=== PATIENT | female | born 1930 | race Caucasian/White ===

== ENCOUNTER 2016-11-28 09:50 | Outpatient (CLI) | payer MEDICARE, OTHER ==
[2016-11-28 19:22] LABS: BASOPHILS % (AUTO) 0.6 %; EOSINOPHILS # (AUTO) 0.1 10^3/uL (0.0-0.7); EOSINOPHILS % (AUTO) 1.2 %; HCT - HEMATOCRIT 39.5 % (37.0-47.0); HGB - HEMOGLOBIN 13.1 g/dL (12.0-16.0); LYMPHOCYTES # (AUTO) 0.9 10^3/uL (1.5-3.5); LYMPHOCYTES % (AUTO) 17.5 %; MEAN CORPUSCULAR HEMOGLOBIN 31.1 pg (27.0-31.0); MEAN CORPUSCULAR HGB CONC 33.2 g/dL (32.0-36.0); MEAN CORPUSCULAR VOLUME 93.8 fL (81.0-99.0); MONOCYTES # (AUTO) 0.4 10^3/uL (0.0-1.0); MONOCYTES % (AUTO) 6.8 %; NEUTROPHILS # (AUTO) 3.9 10^3/uL (1.5-6.6); NEUTROPHILS % (AUTO) 73.9 %; RED BLOOD COUNT 4.22 10^6/uL (4.20-5.40); RED CELL DISTRIBUTION WIDTH 13.2 % (12.0-15.0); UNCORRECTED WHITE BLOOD COUNT 5.3 x10^3/uL; WHITE BLOOD COUNT 5.3 x10^3/uL (4.8-10.8)
[2016-11-28 19:38] LABS: BILIRUBIN,TOTAL 0.6 mg/dL (0.2-1.0); CALCIUM 9.2 mg/dL (8.5-10.3); CREATININE 0.8 mg/dL (0.4-1.0); POTASSIUM 4.2 mmol/L (3.5-5.0); TOTAL PROTEIN 6.5 g/dL (6.7-8.2)
[2016-11-28 19:51] LABS: PLATELET ESTIMATE, MANUAL NORMAL (130-450,000) (NORMAL); PLATELET MORPHOLOGY NORMAL APPEARANCE (NORMAL)
== END 2016-11-28 09:51 | disposition home or self-care (01) ==
LOC: LAB.WCP 09:50
PROVIDERS: ATTEND Physician Assistant Medical
DX: F03.90 Unspecified dementia, unspecified severity, without behavioral disturbance, psychotic disturbance, mood disturbance, and anxiety (principal); Z79.899 Other long term (current) drug therapy
CPT/HCPCS: 36415; 80053; 84443; 85025

== ENCOUNTER 2018-03-23 14:00 | Outpatient (CLI) | payer MEDICARE, OTHER ==
--- NOTE | 2018-03-23 18:44 | CONSULTATION NOTE ---
Palliative Care Consultation - Referral Referring Provider: Dr. Yvonne Madrid Time of Visit: 8322-3600 Referral setting: Assisted living (It is a taxing considerable effort for the patient to leave the assisted living facility secondary to pain and dementia) Referral Reason: Dementia without behavioral disturbances/ OA - Information Sources Records reviewed: Previous records reviewed History/Review of Systems obtained from: Family (Sister "Roxana WELLS and her Kevin) Exam limitations: Clinical condition (patient with advanced dementia) - History of Present Illness Brief History of Present Illness: This is a very pleasant 88-year-old woman with advanced dementia, without neuropsychiatric behaviors. She is quite cooperative with staff, and has settled into [facility] dementia unit. Her dementia had progressed until she is unable to live independent up in [place], and moved in with her sister in September 2016. She continued decline, did have some wandering behaviors and with increased incontinence and care needs was placed at [facility] about 6 months ago. Patient has known underlying osteoarthritis, in the past is managed on APAP 1000 mg 3 times daily for pain control, has had several joint replacements. She has had progressive pain over the last several weeks, escalating to the point she was having difficulty eating, walking, and was crying out intermittently. She was trialed on intermittent Tylenol without effect, then tramadol. She was given prednisone burst of 40 mg for 5 days for acute right wrist swelling last week, this actually improved her overall pain status with improved eating, improved pain control and improved functional status. Prior to this they did feel like she was on a fairly steep decline, do recognize this is probably a temporary reprieve, but in discussing weighing benefits and burdens will continue with the prednisone, and taper to maintenance level as this does seem to be a quality of life issue for her. Patient is well supported by her family, goal is to focus on comfort and quality of life issues. [facility] was updated to reflect goals, palliative care to continue to provide support for pain and symptom management as it is difficult for patient to get into PCP Medical/Surgical History - Past Medical History Cardiovascular: reports: None Respiratory: reports: None Neuro: Dementia Neuro: reports: Other (hx of PHN buttock RLE) Endocrine/Autoimmune: reports: None GI: reports: None SOLDER SPRAYER: reports: None : reports: Incontinence Psych: reports: None Musculoskeletal: reports: Osteoarthritis, Chronic back pain Derm: reports: None MRSA Hx?: No - Past Surgical History Ortho: reports: Hip replacement (THR bilat), Shoulder arthroplasty (right shoulder), Other (right thumb replacement; Carpal tunnel release) - Substance History Use: Uses substance without health or social issues: NONE Social History - Living Situation Living arrangement: Assisted living Support System: Patient was single never , she had lived in the family home in [place]. 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 Her sister describes her as a woman of r[place], had a photographic memory, and was an amazing unique individual. She had been a failure to thrive up in the family home, needing more more assistance, eventually unable to live on her own. Came in lived with her Leann, her youngest sister in September 2016, were able to manage this for about a year until she started wandering and with incontinence. She has been at [facility] now for about 6 months they have been very pleased with the care she has been receiving. She is well supported by her sister who is a retired nurse, as well as her who is a retired physician. She does have several nieces who are close to her as well and visit frequently. Family History - Family History Family History: Mother: (Father of PNA at 97: mother AAA in 80s), Father: , Other family: Alive and Well (has 8 siblings; one with colon cancer) Medications/Allergies - Medications Home Medications: Ambulatory Orders Medication Instructions Recorded Confirmed Acetaminophen [Tylenol Extra 1,000 mg PO TID 03/24/18 03/24/18 Strength] Tramadol HCl 50 mg PO Q6HR PRN 03/24/18 03/24/18 predniSONE [Prednisone] 20 mg PO DAILY MDD 14 days then 10 03/24/18 03/24/18 mg - Allergies Allergies/Adverse Reactions: Allergies Allergy/AdvReac Type Severity Reaction Status Date / Time No Known Drug Allergies Allergy Verified 03/24/18 05:37 Review of Systems - Constitutional Constitutional: reports: Fatigue, Weakness, Poor appetite, Weight loss (Wt 11/28/2016 163.6; 08/14/2016 154.4; 152.4; 03/06/2018 147). denies: Fever - Cardiovascular Cardiovascular: denies: Edema - Respiratory Respiratory: denies: Cough, SOB at rest - Genitourinary Genitourinary: reports: Incontinence - Musculoskeletal Musculoskeletal: reports: Back pain, Muscle aches, Stiffness, Limited range of motion, Muscle weakness, Joint pain (right wrist improved), Other (assisted walking; in wheelchair previously with pain) - Neurological Neurological: reports: Memory problems - Psychiatric Psychiatric: denies: Depression, Anxiety, Behavior disturbances - Other Findings Other Findings: limited ROS secondary to dementia Physical Exam - Vital Signs Temperature: 96.7 C Pulse Rate: 89 Respiratory Rate: 18 O2 Saturation: 95 (ra @ rest) Blood Pressure: 114/72 - Physical Exam General Appearance: positive: No acute distress, Alert Eyes Bilateral: positive: Normal inspection ENT: positive: No signs of dehydration Neck: positive: Trachea midline, Stiff neck (limited range of motion of neck right greater than left; some pain to right with rotation) Cardiovascular: positive: Regular rate & rhythm Respiratory: positive: Breath sounds nml Abdomen: positive: Non-tender, Soft, Nml bowel sounds Skin: positive: Pallor Extremities: positive: No pedal edema, Joint swelling (right wrist with residual swelling but improved per family; limited flexion and exention without pain;), Other (patient needing some assist and cueing to get from sitting to standing; no pain on palpation at knee joints; pain with palpation at right shoulder joint; pain response in right hip with extension; denies pain on weight bearing) Neurologic/Psychiatric: positive: Mood/affect nml (very pleasant), Disoriented to person (recognized and identified sister by name; not FELIZ), Disoriented to place, Disoriented to time, Other (patient able to engage socially; still talking about parents as alive; some distant memory; does not appear distressed; no recall of symptoms; good eye contact; did not demonstrate any depressive or anxiety behaviors at visit) Palliative Care - POLST Patient has POLST: Yes POLST Status: DNR, Comfort Measures (updated POLST to reflect goals) Pain: Pain improved, Location (right hip/back; wrist) Tiredness/Fatigue: Comment (improved activity level) Performance Status: Patient been evaluated from prednisone burst, previously was mostly wheelchair bound secondary to the pain, she is ambulating with cueing and assist without assistive device down the chu and tolerating without difficulty. Family is quite pleased, patient is dependent on ADLs, and is incontinent dependent for marino-care. - Palliative Care Discussion: Met with Sister Leann, who is 10 years younger than her sister, and has been her DPO A her phone number [phone]. Family quite supportive of patient, visit her frequently at this setting. Given patient's acute decline over the last several weeks, did feel like she was heading towards an end-of-life event. Do understand her prognosis could be weeks to years, but do see her declining fairly quickly. She has had somewhat of a reprieve, with a prednisone burst. She has had significant amount of weight loss, but this is related to her pain and unable to eat. They would like the focus to be on comfort, avoiding hospitalization, and the end of life they do consider [facility] her home would accept hospice for support. In discussing infections, would treat for comfort, would weigh benefits of burdens of treating for pneumonia in the future. We did update the [facility], this is going to be out of town, her niece Lucero MEJIA , will be the default D POA for immediate needs. Discussed other care needs, from palliative care team. Feel that her current support from family regarding her [place] journey is adequate, and patient is private pay no needs at this point in time for licensed master social worker. Patient is unable to process any grief or loss, but family's perception is she does not demonstrate any depressive behaviors. Family do not have access to her certificate, insurance Medicare card which is connected to the Social Security number does show date as 05/16/1929. They do suspect this is correct given patient's confusion in the past, and has mentioned that the dates are incorrect. Will correct as will need correct date for certificate. Impression and Recommendations - Palliative Care Impression: This is a jayme 88-year-old woman with advanced dementia, who has had ongoing weight loss, increasing pain issues, and concern for failure to thrive. Patient with recent prednisone burst, responded well with both pain, appetite, and functional status. Patient with known long-standing severe osteoarthritis, goal s are to focus on comfort and quality of life issues. Palliative care to continue to provide support until patient appropriate to transition to hospice. Recommendations/Counseling Done: 1.Acute on chronic pain secondary to osteoarthritis. Patient has responded well to prednisone, will taper down to 20 mg daily times 2 weeks, then 10 mg daily and continue to reevaluate. Patient has long-term been on acetaminophen 1000 mg 3 times daily, will continue. Did introduce may need to consider opioid support, but will continue to evaluate as currently pain is much improved. She does have tramadol for breakthrough pain, but has not been effective up to this point. Suspect treating the underlying etiology has improved her quality of pain management. Counseling provided regarding the risks versus the benefits of long-term steroid use, currently given patient's improvement and with focus on quality will continue at this point in time. Will consider adding PPI or H2 [place] if patient intake decreases. 2. Right wrist pain. Patient with improvement, swelling has decreased. Patient is able to use it better for eating. Will continue to evaluate if appropriate for OT or rehab support. 3. Weight loss. This is multifactorial in origin. Will start weekly weights, per staff report intake is improved with recent steroid burst. We will continue to monitor, can add health shakes if indicated. 4. Dementia without behavioral disturbances. Patient does not demonstrate any symptoms of depression, anxiety, minimally resistive to staff care, this is mostly related to pain or discomfort. We will continue to monitor. 5. Advanced care planning. Counseling with Sister Leann who is D JUSTINA, and her regarding goals of care, [facility] is updated, anticipatory guidance provided regarding hospice and hospice criteria as well as weighing benefits and burdens of treatment in the future. Goal is to avoid hospitalization and any aggressive or invasive interventions. Time Spent: 75 minutes with greater than 50% of this done in counseling regarding pain and symptom management coordination of care with clinical staff and evaluation and anticipatory guidance
== END 2018-03-23 14:01 | disposition home or self-care (01) ==
LOC: EDBD → PC 14:00
PROVIDERS: ATTEND Nurse Practitioner Adult Health
DX: Z51.5 Encounter for palliative care (principal); M19.91 Primary osteoarthritis, unspecified site; G89.29 Other chronic pain; M54.9 Dorsalgia, unspecified; R53.83 Other fatigue; R53.1 Weakness; M62.81 Muscle weakness (generalized); R63.4 Abnormal weight loss; Z66 Do not resuscitate

== ENCOUNTER 2018-06-03 11:15 | Outpatient (CLI) | payer MEDICARE, OTHER ==
--- NOTE | 2018-06-03 21:10 | CONSULTATION NOTE ---
Palliative Care Follow Up - Referral Referring Provider: Dr. Madrid Time of Visit: 1115-05 Referral setting: Assisted living Referral Reason: GLF/Dementia/Cough - Information Sources Records reviewed: Previous records reviewed History/Review of Systems obtained from: Patient, Family (niraheem Beyer at bedside), Caregiver (Clinical staff) Exam limitations: Clinical condition (patient with dementia) - History of Present Illness Update Brief HPI Update: This is a jayme 88-year-old woman with advanced dementia, without neuropsychiatric behaviors. She is currently being cared for at [facility] dementia unit. She is lived here about 6 months, originally met her in March she had significant progressive pain that was escalating to the point where she is having difficulty eating, walking, and crying out. She done very well on prednisone burst of 40 mg related to her right wrist injury, and was tapered very slowly, unfortunately due to miscommunication was tapered off on 04/23. The agreement had been to leave her on low dose, but she had continued to do quite well without any further pain behaviors. Today I am seeing patient is she has had 2 non-witnessed falls this morning, as well as a fall reported yesterday. On examination she does have a trauma injury on her right elbow about 1.5 cm with partial thickness wound, and a scrape about the same site distally, she does have mild swelling and tenderness but no loss of range of motion. She also has a small skin tear of less than 0.5 cm on her r ight anabaptism, appears to be where it may be her glasses had hit her face. As she does have a 2 x 3 cm slight swelling above the right ear, at this point in time no discoloration but is tender to touch. Patient is unable to explain our recall reason for falling, up to this point has been quite stable. She does report feeling "woozy" at one point in the examination, but denies it on another. Her vital signs were stable after both falls, and currently her vital signs are 96.2 pulse 77 108/72 sitting and 102/64 standing with no pulse change. She does have some mild cold symptoms, family does report nasal congestion when they saw her on Friday, and she presents with a slight cough breath sounds are only diminished in the bases, no rhonchi rales or wheezing. Patient denies any shortness of breath or discomfort with cold symptoms. Social History - Living Situation Living arrangement: Assisted living Support System: Patient has regained mobility, does go out with her family on Sundays to attend christianity services. Her care is overseen by her Sister Leann Olmstead, who is the D POA she is supported as well by her rwo nieces Kayleen and Lilian who are both nurses. Medications/Allergies - Medications Home Medications: Ambulatory Orders Medication Instructions Recorded Confirmed Acetaminophen [Tylenol Extra 1,000 mg PO TID 03/24/18 06/03/18 Strength] Tramadol HCl 50 mg PO Q6HR PRN 03/24/18 06/03/18 Guaifenesin [Tussin] 400 mg PO Q4HR PRN 06/03/18 06/03/18 - Allergies Allergies/Adverse Reactions: Allergies Allergy/AdvReac Type Severity Reaction Status Date / Time No Known Drug Allergies Allergy Verified 03/24/18 05:37 Review of Systems - Constitutional Constitutional: reports: Fatigue - Eyes Eyes: reports: Vision loss - Ears, Nose & Throat Ears, Nose & Throat: reports: Nasal congestion - Respiratory Respiratory: reports: Cough - Gastrointestinal Gastrointestinal: reports: Good appetite. denies: Constipation, Nausea - Genitourinary Genitourinary: reports: Incontinence, Other (no signs or symptoms of pain/dysuria; patient denies but unclear reliability) - Musculoskeletal Musculoskeletal: reports: Stiffness, Muscle weakness, Joint swelling - Integumentary Integumentary: reports: Dryness, Other (skin tears/injuries with fall) - Neurological Neurological: reports: Headache (touches anabaptism when asked about headache), Memory problems - Psychiatric Psychiatric: reports: Other (family noted some increase confusion on Friday but not of concern). denies: Behavior disturbances - All Other Systems All Other Systems: reports: Other (limited ROS secondary to dementia and care setting) Physical Exam - Vital Signs Temperature: 96.2 C Pulse Rate: 77 Respiratory Rate: 18 O2 Saturation: 94 (ra @ rest 92% after ambulation) Blood Pressure: 108/72 (sitting 102/64 standing) - Physical Exam General Appearance: positive: Mild distress Eyes Bilateral: positive: Normal inspection ENT: positive: No signs of dehydration Neck: positive: No JVD, Trachea midline. negative: Lymphadenopathy (R), Lymphadenopathy (L) Cardiovascular: positive: Regular rate & rhythm Respiratory: positive: Diminished in bases, Other (noted cough; loose; nonproductive). negative: Wheezes, Rales, Rhonchi Abdomen: positive: Soft, Nml bowel sounds Skin: positive: Wound (Small skin tear on right anabaptism, no bleeding, no signs or symptoms of infection; right elbow with slight swelling, partial skin thickness loss at one centimeter; distal scrap near elbow noted; tender to palpation and examination) Extremities: positive: No pedal edema Neurologic/Psychiatric: positive: Mood/affect nml, Disoriented to place, Disoriented to time, Weakness, Flat affect Palliative Care - POLST Patient has POLST: Yes POLST Status: Comfort Measures Pain: Location (patient with c/o pain in hands; swollen joints; acute pain in right elbow and right anabaptism) Constipation: No Feelings of wellbeing/Perceived Quality of Life: Comment (Family perceive previous to this episode patient is doing quite well, has had several check-in's by phone and no identified concerns or worries.) Performance Status: Patient's gait is slow, but able to ambulate independently down the chu, with shuffled gait. She is dependent for bathing and incontinence care. She does eat independently, has been able to travel in car recently to visit with family. Remains quite verbal, able to initiate some conversation, recognizes family members, disoriented to place and time. - Palliative Care Discussion: Follow-up with Sister Leann who is Florence WOODY. Goal continues to be focus on comfort, they are popping in every day, and will keep an eye on her. Agreed for follow- up in 1 week, will notify me if any concerns prior to this. Goals remain to avoid hospitalization and focus on comfort. Impression and Recommendations - Palliative Care Impression: This is an 88-year-old woman who is quite pleasant, presents with acute injury secondary to falls x2. Patient does present with mild cold symptoms, no acute signs or symptoms of urinary tract infection, will continue to monitor. Recommendations/Counseling Done: 1. Right elbow wound, secondary to acute injury from ground-level fall. Wound cleansed with normal saline and dressed in Mepilex dressing.Appears very superficial in nature, will leave dressing on for 5-7 days. Suspect it will heal without further problem. 2. Head contusion. Patient does not present with any change in altered consciousness, neuro checks intact. Patient does complain of some residual tenderness and pain on the right side of head. Able to converse and engage with both RECORD CLERK and niece. Goal remains to avoid hospitalization, satisfied with current exam. 3. Cough. Patient is appear to at this point in time have mild upper respiratory infection, no signs or symptoms of acute infection. Patient denies any distress with this, nasal congestion is clear, lungs without concerning breath sounds. We will continue to monitor, ordered guaifenesin 400 mg every 4 hours as as needed if cough becomes problematic. Agreed to ongoing monitoring. 4. Acute on chronic pain. Patient currently on scheduled acetaminophen 1000 mg 3 times daily, at this point in time this is been manageable. If patient does acutely flare, can restart on prednisone 10 mg daily, this was shared with family as well as will reexamine in 1 week. Time Spent: 45 minutes with greater than 50% of this done in counseling and coordination of care regarding acute injury, goals of care, and anticipatory guidance.
== END 2018-06-03 11:16 | disposition home or self-care (01) ==
LOC: PC 11:15
PROVIDERS: ATTEND Nurse Practitioner Adult Health
DX: Z51.5 Encounter for palliative care (principal); S50.901A Unspecified superficial injury of right elbow, initial encounter; S00.83XA Contusion of other part of head, initial encounter; R05 Cough; G89.29 Other chronic pain; W18.30XA Fall on same level, unspecified, initial encounter; Y92.129 Unspecified place in nursing home as the place of occurrence of the external cause; M79.642 Pain in left hand; M79.641 Pain in right hand; F03.90 Unspecified dementia, unspecified severity, without behavioral disturbance, psychotic disturbance, mood disturbance, and anxiety; Z79.899 Other long term (current) drug therapy

== ENCOUNTER 2018-06-10 13:45 | Outpatient (CLI) | payer MEDICARE, OTHER ==
--- NOTE | 2018-06-10 20:46 | CONSULTATION NOTE ---
Palliative Care Follow Up - Referral Referring Provider: Dr. Genaro Madrid Time of Visit: 5724-6345 Referral setting: Assisted living Referral Reason: URI/Dementia/Right elbow wound - Information Sources Records reviewed: RN notes reviewed, Previous records reviewed History/Review of Systems obtained from: Patient, Family (niece present for visit) Exam limitations: Clinical condition (advanced dementia) - History of Present Illness Update Brief HPI Update: This is a jayme 88-year-old woman with advanced dementia, without neuropsychiatric behaviors. She is currently being cared for at [facility] dementia unit. She had a couple falls about a week ago, with right wrist injury and head contusion. Her elbow has improved, though she does have residual swelling, most likely synovial fluid. No signs or symptoms of infection. Her right yazidism and head contusion has resolved, she continues with mild cold sy mptoms, intermittent cough during visit. No rales rhonchi or wheezing no respiratory distress. Patient without fever or chills. Patient denies any shortness of breath or discomfort with cold symptoms. Social History - Living Situation Living arrangement: Assisted living (has lived there about 7 months) Support System: Sister Leann oversees care, has been picking her up on Sundays for congregational at her home. Several family members visit often, joint visit with one of nieces today. Medications/Allergies - Medications Home Medications: Ambulatory Orders Medication Instructions Recorded Confirmed Acetaminophen [Tylenol Extra 1,000 mg PO TID 03/24/18 06/11/18 Strength] Tramadol HCl 50 mg PO Q6HR PRN 03/24/18 06/11/18 guaiFENesin [Mucinex] 600 mg PO BID PRN MDD schedule 5 06/11/18 06/11/18 nights - Allergies Allergies/Adverse Reactions: Allergies Allergy/AdvReac Type Severity Reaction Status Date / Time No Known Drug Allergies Allergy Verified 03/24/18 05:37 Review of Systems - Constitutional Constitutional: reports: Fatigue. denies: Fever, Chills - Eyes Eyes: reports: Vision loss - Ears, Nose & Throat Ears, Nose & Throat: denies: Dry mouth - Respiratory Respiratory: reports: Cough. denies: SOB at rest - Genitourinary Genitourinary: reports: Incontinence - Musculoskeletal Musculoskeletal: reports: Muscle weakness (appears to be more weak; ambulating slower; more difficulty getting from sitting to standing) - Integumentary Integumentary: reports: Dryness, Other (elbow wound from fall) - Neurological Neurological: reports: Memory problems - Endocrine Endocrine: reports: Intolerance to cold Physical Exam - Vital Signs Temperature: 97.0 C Pulse Rate: 86 Respiratory Rate: 18 O2 Saturation: 96 (ra @ rest) Blood Pressure: 122/72 - Physical Exam General Appearance: positive: No acute distress, Alert Eyes Bilateral: positive: Normal inspection ENT: positive: No signs of dehydration Neck: positive: No JVD, Trachea midline Cardiovascular: positive: Regular rate & rhythm Respiratory: positive: Breath sounds nml, Other (moist cough; no distress nor sputum production) Abdomen: positive: Non-tender, Soft, Nml bowel sounds Skin: positive: Pallor, Dryness. negative: Wound (Right elbow with swollen fluid sac about size of walnut; slight tender but soft to palpation; skin breaks healed. No further need for dressing. Right yazidism wound healed; no further swelling or tenderness on exam. Patient does not remember fall or injury) Extremities: positive: No pedal edema Neurologic/Psychiatric: positive: Mood/affect nml, Disoriented to place, Disoriented to time Palliative Care - POLST Patient has POLST: Yes POLST Status: DNR, Comfort Measures Pain: Location (appears tender in hands on examination thought denies when asked) Tiredness/Fatigue: Moderate (4-6) Feelings of wellbeing/Perceived Quality of Life: Fair, Acceptable Performance Status: Patient appears to be weakening, but is ambulatory. Has marked increased difficulty getting from sitting to standing, continues to need cueing. We will continue to monitor functional status, may need to consider restarting prednisone - Palliative Care Discussion: Her niece was present at visit, does appear to have living relationship. Patient is very gracious and responsive. Needing redirection and cueing quite frequently. Does appear to recognize niece as well as simple topics discussed. Goals remain to focus on comfort and avoid hospitalization. Update left for sister on 06/11. Impression and Recommendations - Palliative Care Impression: Is a pleasant 88-year-old woman who continues to present with mild cough, no acute signs or symptoms of progressive upper respiratory infection. Patient without fever, chills, is still eating though does appear slightly weaker from baseline but improved from last visit. Elbow is healing with just small amount of swelling residual left. Palliative care continue to provide support and address quality of life issues as arise. Recommendations/Counseling Done: 1. Cough. Patient continues with mild upper respiratory infection, no signs of progression. Patient denies any distress, nasal congestion is clear, lungs without concerning breath sounds. Had not obtain guaifenesin, now with Mucinex 600 mg tabs extended release. Patient does admit to coughing at night, unable to substantiate this. We will go ahead and have it scheduled for 5 days, as patient unable to ask for it. May have it as needed in a.m. as well. We will continue to monitor through clinical staff. 2. Right elbow wound, secondary to acute injury from ground-level fall. Does appear to be healing, with some residual swelling. No further need for dressing. 3. Head contusion. Patient's without any further symptoms of pain or discomfort. No change as far as altered mental status are residual noted by staff. 4. Chronic pain. Patient currently on scheduled acetaminophen 1000 mg 3 times daily, if patient does have any increase in pain or appears more uncomfortable. Am concerned regarding hands to appears somewhat swollen most likely her RA. Can restart on prednisone if indicated.
== END 2018-06-10 13:46 | disposition home or self-care (01) ==
LOC: PC 13:45
PROVIDERS: ATTEND Nurse Practitioner Adult Health
DX: Z51.5 Encounter for palliative care (principal); J06.9 Acute upper respiratory infection, unspecified; F03.90 Unspecified dementia, unspecified severity, without behavioral disturbance, psychotic disturbance, mood disturbance, and anxiety; M25.421 Effusion, right elbow; S51.0 Open wound of elbow; G89.29 Other chronic pain; M06.9 Rheumatoid arthritis, unspecified; Z91.81 History of falling; Z87.828 Personal history of other (healed) physical injury and trauma; Z66 Do not resuscitate

== ENCOUNTER 2018-07-31 12:34 | Outpatient (CLI) | payer MEDICARE, OTHER ==
--- NOTE | 2018-07-31 14:48 | CONSULTATION NOTE ---
Palliative Care Follow Up - Referral Referring Provider: Dr. Yvonne Madrid Time of Visit: Referral setting: Assisted living Referral Reason: Dementia/acute on chronic pain - Information Sources Records reviewed: Previous records reviewed History/Review of Systems obtained from: Patient, Family (follow up with sister/niece) Exam limitations: Clinical condition (patient pleasantly confused with dementia) - History of Present Illness Update Brief HPI Update: This is a very pleasant 88-year-old woman with advanced dementia without neuropsychiatric behaviors. She is cooperative with staff, sometimes does need symptom distraction and redirection she gets frustrated. She does perceive that she is only been here for a few days, she does fabricate information, but is able to speak in full sentences and answer yes/no questions. She does have some intermittent incontinence, and has underlying known osteoarthritis, also suspect possibly RA, she does report left leg discomfort and left hand. She had an exacerbation of pain, restarted the prednisone at 10 mg daily with good results. Patient very pleasant and cooperative during visit. She does have a shuffling gait, has had no recent falls, her upper respiratory infection symptoms have resolved. She does present with right foot with some pressure area on her bunion and her right great toe, does appear her shoes are poorly fitting. Had discussed early with sister about titrating down the prednisone secondary long-term effects, will do a slow taper as patient has had exacerbations of her pain. She does remain on Tylenol 3 times daily as well. Social History - Living Situation Living arrangement: Assisted living Support System: Since Sister Leann oversees her care, she has multiple nieces at visit on a regular basis. She is now with pain well-controlled able to go out intermittently, particularly on Sundays to anabaptism and spend time with her family. She does fatigue fairly easily. Medications/Allergies - Medications Home Medications: Ambulatory Orders Medication Instructions Recorded Confirmed Acetaminophen [Tylenol Extra 1,000 mg PO TID 03/24/18 07/31/18 Strength] Tramadol HCl 50 mg PO Q6HR PRN 03/24/18 07/31/18 guaiFENesin [Mucinex] 600 mg PO BID PRN MDD schedule 5 06/11/18 07/31/18 nights Ascorbic Acid [Vitamin C] 500 mg PO DAILY 07/31/18 07/31/18 Prednisone 7.5 mg PO DAILY MDD 2 weeks then 5 07/31/18 07/31/18 mg daily - Allergies Allergies/Adverse Reactions: Allergies Allergy/AdvReac Type Severity Reaction Status Date / Time No Known Drug Allergies Allergy Verified 03/24/18 05:37 Review of Systems - Constitutional Constitutional: reports: Fatigue, Weight stable (146.8) - Eyes Eyes: reports: Vision loss - Cardiovascular Cardiovascular: reports: Decr. exercise tolerance - Respiratory Respiratory: denies: Cough, SOB at rest - Gastrointestinal Gastrointestinal: reports: Good appetite - Genitourinary Genitourinary: reports: Incontinence (intermittent) - Musculoskeletal Musculoskeletal: reports: Muscle weakness - Integumentary Integumentary: reports: Dryness, Other (right foot pressure areas) - Neurological Neurological: reports: General weakness, Memory problems - Psychiatric Psychiatric: reports: Delusions. denies: Depression, Anxiety - All Other Systems All Other Systems: reports: Other (limited ROS) Physical Exam - Vital Signs Temperature: 96.6 C Pulse Rate: 76 Respiratory Rate: 18 O2 Saturation: 97 (ra @ rest) Blood Pressure: 112/52 - Physical Exam General Appearance: positive: No acute distress Eyes Bilateral: positive: Normal inspection ENT: positive: No signs of dehydration Neck: positive: No JVD, Trachea midline. negative: Lymphadenopathy (R), Lymphadenopathy (L) Cardiovascular: positive: Regular rate & rhythm Respiratory: positive: No respiratory distress, Breath sounds nml Abdomen: positive: Non-tender, Soft, Nml bowel sounds Skin: positive: Pallor, Dryness, Pressure wound (right bunion; right great toe red and appear to be from shoes she is currently wearing) Extremities: positive: No pedal edema Neurologic/Psychiatric: positive: Mood/affect nml, Disoriented to person, Disoriented to place, Disoriented to time Palliative Care - POLST Patient has POLST: Yes POLST Status: DNR, Comfort Measures Pain: Pain improved, Location (Patient describes most acute pain in her right foot, on examination does have pressure points in her shoe which is too small. She also complains of some pain in her left hip and leg. As well as in her hand s. She is unable to be more descriptive, but reports since bearable. Denies any "particular time of the day" that "comes and goes".) Sleep: Sleeps well Constipation: Comment (denies; few documented BMs patient also continent at times without supervision) Performance Status: Patient able to get from sitting to standing, we did ambulate the [place] of the facility, she did rest a couple times. She did not seem short of breath. She is dependent for bathing, and some assist with dressing on staff and family. She does self feed. - Palliative Care Discussion: Patient is very pleasant, easily engaged. Denies that anything is worrying her or has any concerns. She perceives herself as just arriving, she reports so far so good, that though it does get noisy here at times. She reports she is "just doing the day". Denies any problems. Family who visit her regular, reports she is doing fairly well have not noticed any significant decline. Very pleased with her current level of comfort and care. Patient does have a OSW[address] as do not attempt resuscitation and comfort measures. Her sister Leann Olmstead is her D POA [phone] as well as home number [phone] he would like to focus on comfort and avoid hospitalizations. Impression and Recommendations - Palliative Care Impression: This is a pleasant 88-year-old woman who continues to have intermittent exacerbations of her pain, most likely attributed to osteo-/RA. She has responded nicely to the prednisone, will those start to taper secondary long- term effects. Patient without any further acute trauma from falls, upper respiratory infection has resolved. Palliative care continue provide support and address quality of life issues as advised and transition to hospice when appropriate Recommendations/Counseling Done: 1. Acute on chronic pain. This is multifactorial, right foot discomfort related to pressure from shoe. Call and spoke with sister, they will order her new shoes as well as follow-up with podiatry as needed she sees Dr. Riddhi Caballero. Patient's last exacerbation of pain was controlled with the prednisone 10 mg, and acetaminophen 1000 mg 3 times daily. Will start taper at 7.5 mg for 2 weeks then down to 5 mg. Evaluated for side effects of prednisone, currently tolerating without difficulty. 2. Dementia without behavioral disturbances. Patient is quite pleasant, sometimes needs redirecting per staff. She is easily to engage, can still speak in full sentences. I would put her at a FAST 6E. She has not had any weight loss, no identified issues with swallowing, no recent falls or altercations. 3. Advanced care planning. Patient does have a OSWALDO [address] in place, family continue to be quite attentive with the goal of maximizing patient's quality of life. Palliative care to continue to provide support until patient transitions to hospice. Time Spent: 40 minutes with getting 50% of the ascending coordination of care with facility staff, family, and anticipatory guidance
== END 2018-07-31 12:35 | disposition home or self-care (01) ==
LOC: PC 12:34
PROVIDERS: ATTEND Nurse Practitioner Adult Health
DX: Z51.5 Encounter for palliative care (principal); G89.29 Other chronic pain; M25.552 Pain in left hip; M79.605 Pain in left leg; M79.642 Pain in left hand; M79.641 Pain in right hand; M21.611 Bunion of right foot; F03.90 Unspecified dementia, unspecified severity, without behavioral disturbance, psychotic disturbance, mood disturbance, and anxiety; M19.90 Unspecified osteoarthritis, unspecified site; Z79.899 Other long term (current) drug therapy; Z66 Do not resuscitate

== ENCOUNTER 2018-08-25 15:15 | Outpatient (CLI) | payer MEDICARE, OTHER ==
--- NOTE | 2018-08-25 18:25 | CONSULTATION NOTE ---
Palliative Care Follow Up - Referral Referring Provider: Dr. Yvonne Madrid Time of Visit: 9910-3578 Referral setting: Assisted living Referral Reason: Lethargy/UTI/Dementia - Information Sources Records reviewed: Previous records reviewed History/Review of Systems obtained from: Family (follow up with sister Leann), Caregiver (clinical staff) Exam limitations: Clinical condition (patient with advanced dementia; verbal but STM unable to participate accurately in ROS) - History of Present Illness Update Brief HPI Update: This is a very pleasant 88-year-old woman with advanced dementia without neuropsychiatric behaviors, she does sometimes need redirection, and gets frustrated with staff. She can speak in full sentences and answer yes/no questions, though not accurate. Today she presents with increased lethargy, difficulty to focus, falling asleep. I am visiting in response to report of increased confusion and lethargy, and dark urine and foul-smelling. Had asked to push fluids and get a UA for C&S. Unable to obtain secondary to patient more incontinent. Her urine dip was 500++ plus, protein 30, negative blood hemoglobin. Patient without systemic signs, but is presenting with altered mental status. Did follow-up with sister as often sees her on the weekends, she had visited this morning, and had experience of difficulty awakening her and noticing increased lethargy as well. In discussion of quality of life issues, decision was made to treat. Patient also has baseline known osteoarthritis, possibly RA. She denies pain at time of visit, has been titrated down to prednisone 5 mg, continues on acetaminophen 1000 mg 3 times daily. Does appear comfortable from report of staff and family. Social History - Living Situation Living arrangement: Assisted living Support System: Patient is single without any children, she is much beloved by her family and nieces. Her Sister Leann oversees her care, when she is feeling better, she is able to go home for part of a day on the weekends. Medications/Allergies - Medications Home Medications: Ambulatory Orders Medication Instructions Recorded Confirmed Acetaminophen [Tylenol Extra 1,000 mg PO TID 03/24/18 08/26/18 Strength] Tramadol HCl 50 mg PO Q6HR PRN 03/24/18 08/26/18 guaiFENesin [Mucinex] 600 mg PO BID PRN 06/11/18 08/26/18 Ascorbic Acid [Vitamin C] 500 mg PO DAILY 07/31/18 08/26/18 Prednisone 5 mg PO DAILY 07/31/18 08/26/18 Sulfamethox/Trimeth 800/160 1 tab PO BID MDD 5 days 08/26/18 08/26/18 [Bactrim Ds] - Allergies Allergies/Adverse Reactions: Allergies Allergy/AdvReac Type Severity Reaction Status Date / Time No Known Drug Allergies Allergy Verified 03/24/18 05:37 Review of Systems - Constitutional Constitutional: reports: Fatigue, Weight stable (147.4). denies: Fever - Eyes Eyes: reports: Vision loss, Corrective lenses - Genitourinary Genitourinary: reports: Incontinence - Integumentary Integumentary: reports: Dryness - Neurological Neurological: reports: General weakness, Memory problems - Psychiatric Psychiatric: reports: Other (noted increase confusion and lethargy) - Hematologic/Lymphatic Hematologic/Lymphatic: reports: Recurrent infections (has hx of UTIs) Physical Exam - Vital Signs Temperature: 36.7 C Pulse Rate: 79 Respiratory Rate: 16 O2 Saturation: 95 Blood Pressure: 102/58 - Physical Exam General Appearance: positive: No acute distress, Lethargic Eyes Bilateral: positive: Normal inspection Cardiovascular: positive: Regular rate & rhythm Respiratory: positive: No respiratory distress, Breath sounds nml Abdomen: positive: Non-tender, Soft, Nml bowel sounds Skin: positive: Pallor, Dryness, Other (inspected feet; shoes fit better; still few pressure points; has hammertoes; denies pain) Extremities: positive: No pedal edema Neurologic/Psychiatric: positive: Disoriented to person, Disoriented to place, Disoriented to time, Weakness, Flat affect Palliative Care - POLST Patient has POLST: Yes POLST Status: DNR, Comfort Measures Performance Status: Patient is ambulatory around the facility, does spend quite a bit of time just sitting. She is more lethargic the last few days, time resting and napping in the bedroom.Dependent for bathing, incontinence management, but can assist with dressing. - Palliative Care Discussion: Patient very pleasant, denies worrying about anything, is pleasant with social interaction and significant amount of confabulation. Follow-up with Sister Leann, weighing benefits and burdens at this point in time patient still functional, does perceive she has quality of life, we will go ahead and treat symptomatically. For UTI Impression and Recommendations - Palliative Care Impression: This is a pleasant 88-year-old woman who presents with increased lethargy, mild confusion, and positive urine dip. Unfortunately unable to get UA for C&S, given her symptoms, and persistence of lethargy, will go ahead and treat. Patient's underlying pain does appear to be well controlled, is tolerating the decrease in prednisone. Palliative care to continue provide support and address quality of life issues has advised and transition to hospice when appropriate Recommendations/Counseling Done: 1. UTI. Patient without any allergies, will go ahead and treat with Bactrim DS 1 tab twice daily for 5 days. Staff have been instructed if patient able to provide UA prior to starting antibiotics to go ahead, if not to discontinue order. 2. Chronic pain secondary to osteoarthritis. This is multifactorial, currently patient does have new shoes on with just a few small pressure points, denies pain versus last visit. Patient tolerating taper at 5 mg daily. Continues on acetaminophen 1000 mg 3 times daily. 3. Dementia without behavioral disturbances. Patient is quite pleasant, though does need redirection per staff. She is a F AST 6E. She has had no weight loss, no identified issues swallowing, no recent falls or altercations. 4. Advanced care planning. Patient does have a OSWALDO [address] in place, her D POA is her Sister Leann Olmstead [phone]. Family continues to be quite attentive with the goal of maximizing patient's quality of life. Time Spent: 20 minutes spent coordinating care with clinical staff and sister, reviewing anticipatory guidance and goals of care, will treat for UTI.
== END 2018-08-25 15:16 | disposition home or self-care (01) ==
LOC: PC 15:15
PROVIDERS: ATTEND Nurse Practitioner Adult Health
DX: Z51.5 Encounter for palliative care (principal); N39.0 Urinary tract infection, site not specified; G89.29 Other chronic pain; M19.90 Unspecified osteoarthritis, unspecified site; F03.90 Unspecified dementia, unspecified severity, without behavioral disturbance, psychotic disturbance, mood disturbance, and anxiety; R32 Unspecified urinary incontinence; Z79.899 Other long term (current) drug therapy; Z79.52 Long term (current) use of systemic steroids; Z66 Do not resuscitate

== ENCOUNTER 2018-11-25 12:56 | Outpatient (CLI) | payer MEDICARE, OTHER ==
--- NOTE | 2018-11-25 16:13 | CONSULTATION NOTE ---
Palliative Care Follow Up - Referral Referring Provider: Dr. Genaro Madrid Time of Visit: [id number] Referral setting: Assisted living Referral Reason: URI - Information Sources Records reviewed: Previous records reviewed History/Review of Systems obtained from: Caregiver (clincial staff) Exam limitations: Clinical condition (patient lethargic/advanced dementia) - History of Present Illness Update Brief HPI Update: This is an 88-year-old woman with advanced dementia without neuropsychiatric behaviors, who has presented over the last 24 hours with increased signs of upper respiratory infection. Staff reports she has been quite hoarse, has had a cough, and decreased intake. She did take her medications and 25% of her breakfast this morning, she is sleeping in the chair, hard to arouse, but is able to cooperate for exam. She is warm to touch, and bundled up in sweater/blanket, but her temp is 97.2. She does not present with any chills. She is able to take sips of water for me. Her breath sounds are diminished, no wheezing or rhonchi. There has been acute illness and other residents is in the facility. Social History - Living Situation Living arrangement: Assisted living Support System: Patient lives at [facility] assisted living [facility]. Her care is overseen by her Sister Leann. She has 2 nieces and is well supported by her family. They do bring her home on Sundays to participate in gnosticist services. Patient is usually quite content and involved in facility activities. Medications/Allergies - Medications Home Medications: Ambulatory Orders Medication Instructions Recorded Confirmed Acetaminophen [Tylenol Extra 1,000 mg PO TID 03/24/18 11/26/18 Strength] Tramadol HCl 50 mg PO Q6HR PRN 03/24/18 11/26/18 guaiFENesin [Mucinex] 600 mg PO BID PRN 06/11/18 11/26/18 Ascorbic Acid [Vitamin C] 500 mg PO DAILY 07/31/18 11/26/18 Prednisone 5 mg PO DAILY 07/31/18 11/26/18 Azithromycin [Zithromax] 250 mg PO .2 TABS; 1 TAB DAILY MDD 11/26/18 11/26/18 5 doses - Allergies Allergies/Adverse Reactions: Allergies Allergy/AdvReac Type Severity Reaction Status Date / Time No Known Drug Allergies Allergy Verified 03/24/18 05:37 Review of Systems - Constitutional Constitutional: reports: Fatigue, Malaise, Poor appetite, Weight stable. denies: Fever, Chills - Ears, Nose & Throat Ears, Nose & Throat: reports: Nasal congestion, Postnasal drainage. denies: Dry mouth - Cardiovascular Cardiovascular: reports: Decr. exercise tolerance - Respiratory Respiratory: reports: Cough (reported; took mucinex this am). denies: SOB at rest - Gastrointestinal Gastrointestinal: reports: Poor appetite - Genitourinary Genitourinary: reports: Incontinence - Musculoskeletal Musculoskeletal: reports: Muscle weakness - Integumentary Integumentary: reports: Dryness - Neurological Neurological: reports: General weakness, Memory problems - Hematologic/Lymphatic Hematologic/Lymphatic: reports: Recurrent infections (most recently treated for UTI July) - All Other Systems All Other Systems: reports: Other (limited) Physical Exam - Vital Signs Temperature: 97.1 C Pulse Rate: 96 Respiratory Rate: 16 O2 Saturation: 93 (ra @ rest) Blood Pressure: 122/64 - Physical Exam General Appearance: positive: No acute distress, Lethargic Eyes Bilateral: positive: Normal inspection ENT: negative: Pharyngeal erythema, Dry mucous membranes Neck: positive: Trachea midline. negative: Lymphadenopathy (R), Lymphadenopathy (L) Cardiovascular: positive: Regular rate & rhythm Respiratory: positive: No respiratory distress, Diminished throughout. negative: Wheezes, Rales, Rhonchi Abdomen: positive: Soft Skin: positive: Pallor, Dryness Extremities: positive: No pedal edema Neurologic/Psychiatric: positive: Disoriented to person, Disoriented to place, Disoriented to time, Weakness, Flat affect Palliative Care - POLST Patient has POLST: Yes POLST Status: DNR, Comfort Measures Pain: No pain Performance Status: Patient did have a fall earlier this week, with no resulting injury. Patient was able to dress and eat small amount of breakfast this morning, but has deferred lunch. She is sitting in the recliner. Unclear if she slept well last night, sister had seen her yesterday evening, and did say she had a cough and looks like she was feeling poorly. - Palliative Care Discussion: Spoke with daughter Leann regarding goals of care. She would like to go ahead and treat, she says she is looking forward to the summer and not ready to lose her yet. Discussed if she did not improve with they want hospitalization, she will discuss it with her and daughters. Goals have been comfort focused, with hope to avoid hospitalization, but recognizing this is a fairly acute change, and patient has been functional and still engaged in family life and proceed to have good quality of life currently. Impression and Recommendations - Palliative Care Impression: This is an 88-year-old woman with advanced dementia, who presents as a FAST6E at baseline. Patient presents with acute illness, change in the last 24 hours. Patient most likely with upper respiratory infection, will go ahead and treat with Z-Kirit. Recommendations/Counseling Done: 1. Bronchitis. Patient with cough, hoarseness, acute change in last 24 hours. Certainly could be viral in origin, patient on prednisone for osteoarthritis, no acute respiratory symptoms. Counseling provided with sister, will go ahead and treat with Z-Kirit. Staff instructed to push fluids and focus on rehydration. 2. Chronic pain secondary osteoarthritis. This is multifactorial, patient talk treated down to 5 mg daily, this appears to be adequate for managing secondary acute pain previously. Continues on acetaminophen 1000 mg 3 times daily. 3. Dementia without behavioral disturbances. Patient at baseline still has fairly good quality of life perceived by her sister. She occasionally needs redirection from staff. She does engage in activities, is taken out by her family. She has had no weight loss, no identified issues swallowing, and has settled well into the facility. Family visits frequently. 4. Advanced care planning. Patient does have POLST in place, her DPOAE is her Sister Leann bolus [phone] goals remain to maximize patient's quality of life, and discussion with sister will treat, would consider weighing benefits and burdens of hospitalization if patient does not improve. Time Spent: 45 minutes with greater than 50% of this done in counseling regarding coordination of care with staff, confirming/eliciting goals of care, and anticipatory guidance.
== END 2018-11-25 12:57 | disposition home or self-care (01) ==
LOC: PC 12:56
PROVIDERS: ATTEND Nurse Practitioner Adult Health
DX: Z51.5 Encounter for palliative care (principal); J40 Bronchitis, not specified as acute or chronic; F03.90 Unspecified dementia, unspecified severity, without behavioral disturbance, psychotic disturbance, mood disturbance, and anxiety; M19.90 Unspecified osteoarthritis, unspecified site; G89.29 Other chronic pain; Z66 Do not resuscitate; Z91.81 History of falling; Z79.52 Long term (current) use of systemic steroids; Z79.899 Other long term (current) drug therapy

== ENCOUNTER 2019-03-09 10:20 | Outpatient (CLI) | payer MEDICARE, OTHER ==
[2019-03-09 13:16] LABS: BILIRUBIN,URINE NEGATIVE (NEGATIVE); GLUCOSE, URINE (UA) NEGATIVE (NEGATIVE); KETONES,URINE (UA) NEGATIVE (NEGATIVE); LEUKOCYTE ESTERASE, URINE NEGATIVE (NEGATIVE); NITRITE,URINE NEGATIVE (NEGATIVE); OCCULT BLOOD,URINE NEGATIVE (NEGATIVE); PH,URINE 5.5 PH (5.0-7.5); PROTEIN,URINE NEGATIVE (NEGATIVE); UROBILINOGEN,URINE 0.2 (NORMAL) E.U./dL (NORMAL)
[2019-03-09 13:18] LABS: CLARITY,URINE CLEAR (CLEAR)
== END 2019-03-09 23:59 | disposition home or self-care (01) ==
LOC: LAB.R 10:20
PROVIDERS: ATTEND Nurse Practitioner Adult Health
DX: R30.0 Dysuria (principal)
CPT/HCPCS: 81001; 81003; 87086

== ENCOUNTER 2019-03-09 11:00 | Outpatient (CLI) | payer MEDICARE, OTHER ==
--- NOTE | 2019-03-09 18:27 | CONSULTATION NOTE ---
Palliative Care Follow Up - Referral Referring Provider: Dr. Yvonne Madrid Time of Visit: Referral setting: Assisted living Referral Reason: Agitation/Constipation - Information Sources Records reviewed: RN notes reviewed, Previous records reviewed History/Review of Systems obtained from: Patient, Family (check in with sister Leann), Caregiver (clinical staff) Exam limitations: Clinical condition (patient with advanced dementia) - History of Present Illness Update Brief HPI Update: This is an 88-year-old woman with advanced dementia without neuropsychiatric behaviors, who has been reported to have increased agitation particularly in the evenings. Staff reports this is been more so in the last 24 hours, they did do a urine dip which was only slightly positive. When spoke with daytime shift, report behaviors are mostly noted in late afternoon, she is fine this morning. Suspect may be patient having some sundowning. Patient on exam does not present with any active signs or symptoms of infection, afebrile, vital signs stable, abdomen soft with no tenderness over palpation of bladder. Urine looks clear, did take a UA and dropped off at [facility]. It did run negative, and not need for culture. Patient has been eating and drinking, her weight is been stable at 148.2. Staff and family when spoke to sister, have noted increased slow changes in her cognitive status with increased forgetfulness, more confabulation, more fatigue overall. Patient is sleeping a little bit more, is still going out on Sundays with her family. But does get quite fatigued. Patient on presentation is interactive, trying to be social, and able to speak in full sentences. Patient has had some intermittent incontinence, and RN to assist patient with toileting reports having increased trouble with bowel movements, She is having regular bowel movements, but having more trouble with figuring out how to push. She is wondering if she could have a light laxative to may be help her. Social History - Living Situation Living arrangement: Assisted living Support System: She lives at [facility] assisted living facility. Her Sister Leann oversees her care, she has 2 nieces and is well supported by her family. Again, her christianity and singing is very important to her, they do take her out Sundays for uatsdin services. Patient is usually quite content and does engage in activities at the facility. Medications/Allergies - Medications Home Medications: Ambulatory Orders Medication Instructions Recorded Confirmed Acetaminophen [Tylenol Extra 1,000 mg PO TID 03/24/18 03/09/19 Strength] Tramadol HCl 50 mg PO Q6HR PRN 03/24/18 03/09/19 guaiFENesin [Mucinex] 600 mg PO BID PRN 06/11/18 03/09/19 Ascorbic Acid [Vitamin C] 500 mg PO DAILY 07/31/18 03/09/19 Prednisone 5 mg PO DAILY 07/31/18 03/09/19 Sennosides [Senna] 8.6 mg PO .Q2 DAYS 03/09/19 03/09/19 - Allergies Allergies/Adverse Reactions: Allergies Allergy/AdvReac Type Severity Reaction Status Date / Time No Known Drug Allergies Allergy Verified 03/24/18 05:37 Review of Systems - Constitutional Constitutional: reports: Fatigue, Weight stable (148.1). denies: Fever, Chills - Eyes Eyes: reports: Vision loss, Corrective lenses (forgets to wear) - Cardiovascular Cardiovascular: denies: Edema - Respiratory Respiratory: denies: Cough, SOB at rest - Gastrointestinal Gastrointestinal: reports: Constipation (nurse describes patient having more difficulty with BMs, forgetting how to push/evacuate often needing disimpaction even though stool soft), Good appetite. denies: Abdominal pain, Reflux/heartburn - Genitourinary Genitourinary: reports: Incontinence (intermittent), Other (urine dip weakly positive) - Musculoskeletal Musculoskeletal: reports: Stiffness - Integumentary Integumentary: reports: Dryness - Neurological Neurological: reports: General weakness, Memory problems. denies: Dizziness - Psychiatric Psychiatric: reports: Delusions (confabulates about family/mother and setting; speaks in round about confused sentences;). denies: Depression, Anxiety - All Other Systems All Other Systems: reports: Other (limited ROS) Physical Exam - Vital Signs Temperature: 97.1 C Pulse Rate: 80 Respiratory Rate: 18 O2 Saturation: 97 (ra @ rest) Blood Pressure: 108/62 - Physical Exam General Appearance: positive: No acute distress, Alert Eyes Bilateral: positive: Normal inspection ENT: positive: No signs of dehydration Neck: positive: No JVD, Trachea midline Cardiovascular: positive: Regular rate & rhythm Respiratory: positive: No respiratory distress, Breath sounds nml Abdomen: positive: Non-tender, Soft, Nml bowel sounds. negative: Guarding Skin: positive: Pallor, Dryness Extremities: positive: No pedal edema Neurologic/Psychiatric: positive: Mood/affect nml, Disoriented to person, Disoriented to place, Disoriented to time, Weakness Palliative Care - POLST Patient has POLST: Yes POLST Status: DNR, Comfort Measures Pain: Pain unchanged, Location (denies at visit; but joints often uncomfortable per family;) Sleep: Sleeps well Constipation: Yes, Unmanaged, Intermittent constipation Performance Status: She is ambulating around facility, she does sit and take frequent breaks. She usually can find a room but not always. She is able to self feed. She does spend quite a bit of time in [place] and does enjoy activities. She does need assistance with bathing, she can self feed, needs cueing and redirection for managing overall. - Palliative Care Discussion: Spoke with sister Leann, she continues to really enjoys spending time with her sister, they are though wanting to focus on quality of life. She does recognize that she is having some decline, which makes her quite sad. Patient very much enjoys still singing, reports that she can still keep harmony and really appears to enjoy even in her dementia, her current surroundings and her interactions with family. Leann's perception is patient's quality of life continues to be good even though her overall status is declining. Results - Lab Results Lab results reviewed: Yes Lab and Imaging Results: UA negative Impression and Recommendations - Palliative Care Impression: This is a 88-year-old woman with advanced dementia, who presents as a FAST6E at baseline. Patient continues to enjoy her current quality of life, engaged in her surroundings, her family still visits and includes her on a regular basis and there are rhythm of life particularly on Sundays. Patient does not present with any acute signs or symptoms of infection, obtained UA and is negative. Will titrate bowel program. Palliative care to continue to be available to provide support as it is confusing and difficult for patient to leave the facility for appointments. Recommendations/Counseling Done: 1. ing. In review of patient's chart and with staff, does appear to have some increased agitation and irritation/confusion in late afternoon. Does not appear at this point in time needs intervention as far as medication, did review though with sister there are options if becomes problematic. 2. Constipation. Suspect this is multifactorial in origin, including dementia as far as cueing and toileting. We will go ahead and add senna 8.6 mg every other day, sister to bring it in and in agreement with plan. 3. History of UTIs. Patient with some behavioral issues, urine dip slightly positive. Do not want to treat without confirmation, UA was negative. 4. Advanced care planning. Patient does have a POLST in place, with DNA R and comfort measures. Family continues to provide support and proceed patient's gabbi lity of life is acceptable, will continue to weigh treatment decisions as they arise. Patient will be transition to hospice when appropriate. Time Spent: 20 minutes with getting 50% of this done in counseling and coordination of care regarding patient's current status, bowel program, and into separatory guidance with sister.
== END 2019-03-09 11:01 | disposition home or self-care (01) ==
LOC: PC 11:00
PROVIDERS: ATTEND Nurse Practitioner Adult Health
DX: Z51.5 Encounter for palliative care (principal); F03.90 Unspecified dementia, unspecified severity, without behavioral disturbance, psychotic disturbance, mood disturbance, and anxiety; F05 Delirium due to known physiological condition; K59.00 Constipation, unspecified; Z79.52 Long term (current) use of systemic steroids; Z87.440 Personal history of urinary (tract) infections; Z66 Do not resuscitate

== ENCOUNTER 2019-06-13 21:53 | Outpatient (CLI) | payer MEDICARE, OTHER | END 2019-06-13 21:54 | disposition E | LOC: EMS 21:53 | PROVIDERS: ATTEND Surgery ==